=== PATIENT | male | born 1960 | race Caucasian/White ===

== ENCOUNTER → 2016-11-10 | Outpatient (CLI) | payer BC, OTHER ==
[~2016-11-10] MED LIST: DLN/100 PO
--- NOTE | 2016-11-10 16:03 | DIAGNOSTIC IMAGING REPORT ---
CHEST 2 VIEWS ROUTINE CLINICAL HISTORY: Shortness of breath. COMPARISON STUDY: Chest radiograph and chest CT January 25, 2008. FINDINGS: Moderate elevation of the right hemidiaphragm is unchanged. Linear right lower lung opacity suggests atelectasis or scarring. There is no evidence of pulmonary edema. No consolidation is present. Cardiac size is within normal limits. IMPRESSION: 1. No acute cardiopulmonary findings. 2. Stable elevation of the right hemidiaphragm. 3. Linear right lower lung opacity suggestive of atelectasis. Electronically signed by: Dany Roberts M.D. 11/10/2016 4:02 PM Dictated Date/Time: 11/10/2016 3:59 PM
== END | disposition home or self-care (01) ==
LOC: C.RAD1850 15:48
PROVIDERS: ATTEND Internal Medicine
DX: R06.02 Shortness of breath (principal); R91.8 Other nonspecific abnormal finding of lung field

== ENCOUNTER → 2016-11-16 | Outpatient (CLI) | payer OTHER ==
--- NOTE | 2016-11-16 12:45 | DIAGNOSTIC IMAGING REPORT ---
CHEST 2 VIEWS ROUTINE CLINICAL HISTORY: Exacerbation of COPD. Abnormal prior x-ray. COMPARISON STUDY: 11/10/2016 FINDINGS: There is persistent elevation right hemidiaphragm. There is stable right basilar opacities likely atelectatic. The heart is normal in size. There is no failure. There are no pleural effusions.[ IMPRESSION: 1. No acute findings 2. Stable elevation right hemidiaphragm with right basilar opacities, likely atelectatic Electronically signed by: Keith Porter M.D. 11/16/2016 12:44 PM Dictated Date/Time: 11/16/2016 12:43 PM
== END | disposition home or self-care (01) ==
LOC: C.RAD1850 12:17
PROVIDERS: ATTEND Internal Medicine
DX: J44.1 Chronic obstructive pulmonary disease with (acute) exacerbation (principal); J98.6 Disorders of diaphragm

== ENCOUNTER → 2017-01-25 | Outpatient (CLI) | payer OTHER ==
--- NOTE | 2017-01-25 11:50 | DIAGNOSTIC IMAGING REPORT ---
FLUOROSCOPIC SIGNIFICANT TEST OF THE DIAPHRAGMS CLINICAL HISTORY: COPD. Elevated right hemidiaphragm. COMPARISON STUDY: Chest x-ray dated 11/16/2016 FINDINGS: There is marked elevation of the right hemidiaphragm. There is paradoxical movement during the stiff test. This suggest diaphragmatic paralysis. The left hemidiaphragm moves normally IMPRESSION: Marked elevation of the right hemidiaphragm with paradoxical movement during the stiff test. Electronically signed by: Keith Porter M.D. 01/25/2017 11:49 AM Dictated Date/Time: 01/25/2017 11:47 AM
== END | disposition home or self-care (01) ==
LOC: C.RAD 11:12
PROVIDERS: ATTEND Internal Medicine Pulmonary Disease
DX: J44.9 Chronic obstructive pulmonary disease, unspecified (principal); R06.02 Shortness of breath

== ENCOUNTER → 2017-09-04 | Outpatient (CLI) | payer OTHER ==
[2017-09-04 17:58] LABS: BASO % 0.8 %; BASO ABS # 0.04 K/uL (0-0.2); COMPLETE YES; EOS % 1.4 %; HEMATOCRIT 48.2 % (42-52); IG% 0.2 %; LYMPH % 30.7 %; LYMPH ABS # 1.49 K/uL (1.2-3.4); MEAN CELL VOLUME 93.8 fL (80-100); MEAN CORPUSCULAR HEMOGLOBIN 32.7 pg (25-34); MEAN CORPUSCULAR HGB CONC 34.9 g/dl (32-36); MEAN PLATELET VOLUME 10.9 fL (7.4-10.4); MONO % 11.9 %; PLATELET COUNT 152 K/uL (130-400); RED BLOOD COUNT 5.14 M/uL (4.7-6.1); WHITE BLOOD COUNT 4.86 K/uL (4.8-10.8)
[2017-09-04 18:27] LABS: ALT/SGPT 25 U/L (12-78); AST/SGOT 18 U/L (15-37); BLOOD UREA NITROGEN 13 mg/dl (7-18); BUN/CREATININE RATIO 15.8 (10-20); CALCIUM 8.4 mg/dl (8.5-10.1); CARBON DIOXIDE 29 mmol/L (21-32); CHLORIDE 107 mmol/L (98-107); CHOLESTEROL 199 mg/dl (0-200); CREATININE 0.84 mg/dl (0.60-1.40); GLUCOSE 98 mg/dl (70-99); POTASSIUM 4.6 mmol/L (3.5-5.1); SODIUM 137 mmol/L (136-145)
[2017-09-04 18:35] LABS: ALB/GLOB RATIO 1.2 (0.9-2); ALKALINE PHOSPHATASE 79 U/L (45-117); CHOLESTEROL/HDL RATIO 4.5; HDL CHOLESTEROL 44 mg/dl; LDL CHOLESTEROL CALCULATED 136 mg/dl; TRIGLYCERIDES 95 mg/dl (0-150); VERY LOW DENSITY LIPOPROT CALC 19 mg/dl
== END | disposition home or self-care (01) ==
LOC: C.LABBFT 11:27
PROVIDERS: ATTEND Internal Medicine
DX: G54.0 Brachial plexus disorders (principal); Z13.220 Encounter for screening for lipoid disorders; G40.909 Epilepsy, unspecified, not intractable, without status epilepticus; Z11.59 Encounter for screening for other viral diseases

== ENCOUNTER 2017-12-10 19:19 | Emergency (ER) | payer OTHER ==
[2017-12-10 19:22] VITALS: TEMP 36.7
[2017-12-10] MEDS ORDERED: SODIUM CHLORIDE 0.9% 1000ML 1,000 ML IV STA (19:29)
--- NOTE | 2017-12-10 19:33 | EMERGENCY ROOM VISIT NOTE ---
History Report prepared by Aidan: Martha Villalta Under the Supervision of: Dr. Donavan Zendejas M.D. First contact with patient: 19:24 Chief Complaint: ABDOMINAL PAIN Stated Complaint: PAIN IN L SIDE History of Present Illness The patient is a 57 year old male who presents to the Emergency Room with complaints of worsening left lower abdominal pain that started yesterday morning. The patient rates his pain a 6/10 in severity. He states movement makes the pain worse. He notes yesterday the pain was mild in the morning but it got persistently worse throughout the day. He states "it feels like an infection is going through my whole body". The patient denies any nausea, vomiting, diarrhea, urinary symptoms, rashes, back pain, chest pain, or leg swelling. He notes he has never had a colonoscopy. He is not on any immunosuppressant's. Source of History: patient Onset: yesterday morning Position: other (left flank) Symptom Intensity: 6/10 Timing: worsening Modifying Factors (Worsening): movement Associated Symptoms: No chest pain, No nausea, No vomiting, No back pain, No diarrhea, No urinary symptoms Note: No leg swelling or rashes. Review of Systems See HPI for pertinent positives & negatives. A total of 10 systems reviewed and were otherwise negative. Past Medical & Surgical Hypertension, asthma, gallbladder disease, kidney stones, seizure disorder. Cholecystectomy. Family History FHx: gallbladder disease Hypertension Seizures Social History Smoking Status: Former Smoker Alcohol Use: none Marital Status: Current/Historical Medications Scheduled Amoxicillin & Pot Clavulanate (Augmentin 875-125 mg), 875 MG PO BID Cyanocobalamin (Vitamin B12), 3,000 MCG SL QAM Phenytoin Sodium (Dilantin), 400 MG PO HS Allergies Coded Allergies: No Known Allergies (Verified , 12/10/17) Physical Exam Vital Signs Date Time Temp Pulse Resp B/P (MAP) Pulse Ox O2 Delivery O2 Flow Rate FiO2 12/10/17 21:15 81 18 146/95 99 Room Air 12/10/17 20:23 88 20 152/88 98 12/10/17 19:22 36.7 92 17 161/106 97 Room Air Physical Exam GENERAL: Patient is uncomfortable appearing and in moderate distress. EYES: No scleral icterus, unremarkable pupils. ENT: Mucous membranes moist, no nasal congestion. NECK: No masses appreciated, no meningismus, trachea is midline. RESPIRATORY: No dyspnea. Clear to auscultation and equal bilaterally. No wheeze , no rhonchi. CARDIOVASCULAR: Regular rate and rhythm. No murmurs, rubs, gallops appreciated. ABDOMEN: Moderate LLQ tenderness to palpation. GASTROINTESTINAL: Abdomen soft, nontender, no peritonitis. Bowel sounds positive. No masses appreciated. BACK: No midline tenderness, no CVA tenderness EXTREMITIES: Normal motion all extremities, no cyanosis, no edema. NEUROLOGIC: Alert and oriented, no acute motor or sensory deficits, no focal weakness, cranial nerves grossly intact. SKIN: No rash, no jaundice, no diaphoresis. Medical Decision & Procedures ER Provider Diagnostic Interpretation: Radiology results and stated below per my review and radiologist interpretation: ABD/PELVIS IV CONTRAST ONLY CLINICAL HISTORY: 57 years-old Male presenting with LLQ abdominal pain. TECHNIQUE: Multidetector CT of the abdomen and pelvis was performed after the administration of intravenous contrast. IV contrast: 117 mL of Optiray 320. A dose lowering technique was used consistent with the principles of ALARA (as low as reasonably achievable). COMPARISON: 03/07/2010. CT DOSE (mGy.cm): The estimated cumulative dose is 926.10 mGy.cm. FINDINGS: Novelty Worker topogram: Cholecystectomy clips. Lung bases: Bandlike consolidation at the right lung base, likely atelectasis or scarring. Similar but less extensive changes at the left lung base. Normal heart size. Coronary artery calcification. No pericardial or pleural effusion. 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 No focal lesion. Patent hepatic vasculature. Biliary: No intrahepatic or extrahepatic biliary ductal dilatation. Gallbladder surgically absent. Pancreas: Mild parenchymal atrophy. Spleen: Normal. Splenule noted. Adrenal glands: Normal. Kidneys and ureters: Normal. No hydronephrosis. Bladder: Mild circumferential bladder wall thickening allowing for underdistention. Pelvic organs: Prostate enlargement likely secondary to benign prostatic hyperplasia. Bowel: Limited diverticulosis of the sigmoid colon. Wall thickening of the distal descending colon focally at a diverticulum. Mild pericolonic fat stranding at this site. No adjacent fluid collection or or extraluminal foci of gas. The appendix is normal. No bowel obstruction. Peritoneal cavity: Trace fluid in the left paracolic gutter with associated peritoneal thickening regionally. No evidence of abscess. No pneumoperitoneum. Lymph nodes: No enlarged lymph nodes in the abdomen or pelvis. Vasculature: Atherosclerosis of the normal caliber abdominal aorta. IVC patent. Abdominal wall: Fat-containing left inguinal hernia. Small fat-containing umbilical hernia. Bilateral gynecomastia. Musculoskeletal: Old fracture deformity of the left ribs noted. Degenerative changes of the sacroiliac joints. IMPRESSION: 1. Mild uncomplicated focal acute diverticulitis at the distal descending colon. No abscess or CT evidence of liam perforation. 2. Circumferential bladder wall thickening may be due to underdistention or indicate chronic bladder outlet obstruction in the setting of prostatomegaly. 3. Bibasilar atelectasis greater on the right. Electronically signed by: Jeevan Isaac M.D. 12/10/2017 8:28 PM Dictated Date/Time: 12/10/2017 8:22 PM Laboratory Results 12/10/17 19:40 Red Blood Count 5.31, Mean Corpuscular Volume 91.5, Mean Corpuscular Hemoglobin 33.1, Mean Corpuscular Hemoglobin Concent 36.2, Mean Platelet Volume 10.3, Neutrophils (%) (Auto) 71.7, Lymphocytes (%) (Auto) 15.2, Monocytes (%) (Auto) 12.3, Eosinophils (%) (Auto) 0.3, Basophils (%) (Auto) 0.2, Neutrophils # (Auto ) 8.76, Lymphocytes # (Auto) 1.86, Monocytes # (Auto) 1.51, Eosinophils # (Auto ) 0.04, Basophils # (Auto) 0.02 12/10/17 19:40 Test 12/10/17 19:40 12/10/17 19:46 White Blood Count 12.23 K/uL (4.8-10.8) Red Blood Count 5.31 M/uL (4.7-6.1) Hemoglobin 17.6 g/dL (14.0-18.0) Hematocrit 48.6 % (42-52) Mean Corpuscular Volume 91.5 fL (80-100) Mean Corpuscular Hemoglobin 33.1 pg (25-34) Mean Corpuscular Hemoglobin Concent 36.2 g/dl (32-36) Platelet Count 166 K/uL (130-400) Mean Platelet Volume 10.3 fL (7.4-10.4) Neutrophils (%) (Auto) 71.7 % Lymphocytes (%) (Auto) 15.2 % Monocytes (%) (Auto) 12.3 % Eosinophils (%) (Auto) 0.3 % Basophils (%) (Auto) 0.2 % Neutrophils # (Auto) 8.76 K/uL (1.4-6.5) Lymphocytes # (Auto) 1.86 K/uL (1.2-3.4) Monocytes # (Auto) 1.51 K/uL (0.11-0.59) Eosinophils # (Auto) 0.04 K/uL (0-0.5) Basophils # (Auto) 0.02 K/uL (0-0.2) RDW Standard Deviation 43.2 fL (36.4-46.3) RDW Coefficient of Variation 13.0 % (11.5-14.5) Immature Granulocyte % (Auto) 0.3 % Immature Granulocyte # (Auto) 0.04 K/uL (0.00-0.02) Urine Color YELLOW Urine Appearance CLEAR (CLEAR) Urine pH 7.0 (4.5-7.5) Urine Specific [place] 1.018 (1.000-1.030) Urine Protein NEG (NEG) Urine Glucose (UA) NEG (NEG) Urine Ketones NEG (NEG) Urine Occult Blood NEG (NEG) Urine Nitrite NEG (NEG) Urine Bilirubin NEG (NEG) Urine Urobilinogen NEG (NEG) Urine Leukocyte Esterase NEG (NEG) Urine WBC (Auto) 0 /hpf (0-5) Urine RBC (Auto) 0-4 /hpf (0-4) Urine Hyaline Casts (Auto) 0 /lpf (0-5) Urine Epithelial Cells (Auto) 0-5 /lpf (0-5) Urine Bacteria (Auto) NEG (NEG) Estimated GFR () 102.6 Estimated GFR (Non- 88.5 BUN/Creatinine Ratio 9.7 (10-20) Calcium Level 8.0 mg/dl (8.5-10.1) Total Bilirubin 0.5 mg/dl (0.2-1) Direct Bilirubin 0.1 mg/dl (0-0.2) Aspartate Amino Transf (AST/SGOT) 16 U/L (15-37) Alanine Aminotransferase (ALT/SGPT) 24 U/L (12-78) Alkaline Phosphatase 90 U/L (45-117) Total Protein 7.4 gm/dl (6.4-8.2) Albumin 3.7 gm/dl (3.4-5.0) Lipase 172 U/L (73-393) Bedside Hemoglobin 16.7 g/dl (14.0-18.0) Bedside Hematocrit 49 % (42-52) Bedside Sodium 139 mEq/L (135-144) Bedside Potassium 3.7 mEq/L (3.3-5.0) Bedside Chloride 101 mEq/L (101-112) Bedside Total CO2 29 mEq/l (24-31) Anion Gap 14.0 mmol/L (16-25) Bedside Blood Urea Nitrogen 9 mg/dl (7-18) Bedside Creatinine 0.9 mg/dl (0.6-1.3) Bedside Glucose (other) 102 mg/dl (70-99) Bedside Ionized Calcium (Rakesh) 1.08 mmol/l (1.12-1.32) Laboratory results as reviewed by me. Medications Administered Medications (Trade) Dose Ordered Sig/Jeancarlos Route Start Time Stop Time Status Last Admin Dose Admin Sodium Chloride 1,000 ml @ 999 mls/hr Q1H1M STAT IV 12/10/17 19:29 12/10/17 20:29 DC 12/10/17 19:42 999 MLS/HR Amoxicillin/ Clavulanate Potassium (Augmentin Tab) 875 mg ONE ONCE PO 12/10/17 20:45 12/10/17 20:46 DC 12/10/17 20:49 875 MG ED Course 1923: The patient was evaluated in room B2. A complete history and physical exam was performed. 2043: I discussed pros and cons of different antibiotic choices. He wishes to go with Augmentin. I advised he follow up with GI or his PCP. He declines any pain medications. 2109: Reevaluated the patient. Discussed results and discharge instructions: He verbalized understanding and agreement. The patient is ready for discharge. Medical Decision Differential: Diverticulitis, MSK, , UTI, Renal Colic, Bowel Obstruction, Aortic Pathology, amongst other pathologies entertained. 57 yr old pleasant male with LLQ abdominal pain. Exam with TTP over LLQ and with history of no previous issues felt that imaging indicated. WBC mildly elevated but otherwise no evidence sepsis. He does not have surgical abdomen nor diffuse peritonitis. CT confirms diverticulitis. Declines pain medications. Agrees with Augmentin. Stressed PCP/GI follow up. Reviewed symptoms requiring RTED. Stable and looks well. Medication Reconcilliation Current Medication List: was personally reviewed by me Impression Primary Impression: Diverticulitis large intestine w/o perforation or abscess w/o bleeding Scribe Attestation The scribe's documentation has been prepared under my direction and personally reviewed by me in its entirety. I confirm that the note above accurately reflects all work, treatment, procedures, and medical decision making performed by me. Departure Information Dispostion Home / Self-Care Prescriptions Amoxicillin & Pot Clavulanate (Augmentin 875-125 mg) 1 Tab Tab 875 MG PO BID for 10 Days, #20 TAB Prov: Donavan Zendejas M.D. 12/10/17 Referrals RV. Bird MD (PCP) Patient Instructions ED Diverticulitis, [facility]
[2017-12-10] MEDS ORDERED: OPTIRAY 320 IV PRN (19:45)
[2017-12-10] MEDS ORDERED: CYAN30003 SL (19:48)
[2017-12-10] MEDS ORDERED: CYAN10005 PO (19:48)
[2017-12-10] MEDS ORDERED: PHN/100 PO (19:48)
[2017-12-10 19:51] LABS: BASO % 0.2 %; BASO ABS # 0.02 K/uL (0-0.2); EOS % 0.3 %; EOS ABS # 0.04 K/uL (0-0.5); HEMATOCRIT 48.6 % (42-52); HEMOGLOBIN 17.6 g/dL (14.0-18.0); IG# 0.04 K/uL (0.00-0.02); LYMPH % 15.2 %; LYMPH ABS # 1.86 K/uL (1.2-3.4); MEAN CELL VOLUME 91.5 fL (80-100); MEAN CORPUSCULAR HEMOGLOBIN 33.1 pg (25-34); MEAN CORPUSCULAR HGB CONC 36.2 g/dl (32-36); MEAN PLATELET VOLUME 10.3 fL (7.4-10.4); MONO % 12.3 %; MONO ABS # 1.51 K/uL (0.11-0.59); NEUT % 71.7 %; NEUT ABS # 8.76 K/uL (1.4-6.5); PLATELET COUNT 166 K/uL (130-400); RED CELL DISTRIBUTION WIDTH SD 43.2 fL (36.4-46.3); WHITE BLOOD COUNT 12.23 K/uL (4.8-10.8)
[2017-12-10 20:03] LABS: ISTAT CREATININE 0.9 mg/dl (0.6-1.3); ISTAT IONIZED CALCIUM 1.08 mmol/l (1.12-1.32); ISTAT POTASSIUM 3.7 mEq/L (3.3-5.0)
[2017-12-10 20:07] LABS: ALBUMIN 3.7 gm/dl (3.4-5.0); ALT/SGPT 24 U/L (12-78); BLOOD UREA NITROGEN 9 mg/dl (7-18); CARBON DIOXIDE 30 mmol/L (21-32); CREATININE 0.95 mg/dl (0.60-1.40); GLUCOSE 98 mg/dl (70-99); LIPASE 172 U/L (73-393); POTASSIUM 3.7 mmol/L (3.5-5.1); SODIUM 138 mmol/L (136-145)
[2017-12-10 20:10] LABS: ALKALINE PHOSPHATASE 90 U/L (45-117); AST/SGOT 16 U/L (15-37); TOTAL PROTEIN 7.4 gm/dl (6.4-8.2)
--- NOTE | 2017-12-10 20:30 | DIAGNOSTIC IMAGING REPORT ---
ABD/PELVIS IV CONTRAST ONLY CLINICAL HISTORY: 57 years-old Male presenting with LLQ abdominal pain. TECHNIQUE: Multidetector CT of the abdomen and pelvis was performed after the administration of intravenous contrast. IV contrast: 117 mL of Optiray 320. A dose lowering technique was used consistent with the principles of ALARA (as low as reasonably achievable). COMPARISON: 03/07/2010. CT DOSE (mGy.cm): The estimated cumulative dose is 926.10 mGy.cm. FINDINGS: Press Assistant topogram: Cholecystectomy clips. Lung bases: Bandlike consolidation at the right lung base, likely atelectasis or scarring. Similar but less extensive changes at the left lung base. Normal heart size. Coronary artery calcification. No pericardial or pleural effusion. 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 No focal lesion. Patent hepatic vasculature. Biliary: No intrahepatic or extrahepatic biliary ductal dilatation. Gallbladder surgically absent. Pancreas: Mild parenchymal atrophy. Spleen: Normal. Splenule noted. Adrenal glands: Normal. Kidneys and ureters: Normal. No hydronephrosis. Bladder: Mild circumferential bladder wall thickening allowing for underdistention. Pelvic organs: Prostate enlargement likely secondary to benign prostatic hyperplasia. Bowel: Limited diverticulosis of the sigmoid colon. Wall thickening of the distal descending colon focally at a diverticulum. Mild pericolonic fat stranding at this site. No adjacent fluid collection or or extraluminal foci of gas. The appendix is normal. No bowel obstruction. Peritoneal cavity: Trace fluid in the left paracolic gutter with associated peritoneal thickening regionally. No evidence of abscess. No pneumoperitoneum. Lymph nodes: No enlarged lymph nodes in the abdomen or pelvis. Vasculature: Atherosclerosis of the normal caliber abdominal aorta. IVC patent. Abdominal wall: Fat-containing left inguinal hernia. Small fat-containing umbilical hernia. Bilateral gynecomastia. Musculoskeletal: Old fracture deformity of the left ribs noted. Degenerative changes of the sacroiliac joints. IMPRESSION: 1. Mild uncomplicated focal acute diverticulitis at the distal descending colon. No abscess or CT evidence of liam perforation. 2. Circumferential bladder wall thickening may be due to underdistention or indicate chronic bladder outlet obstruction in the setting of prostatomegaly. 3. Bibasilar atelectasis greater on the right. Electronically signed by: Jeevan Isaac M.D. 12/10/2017 8:28 PM Dictated Date/Time: 12/10/2017 8:22 PM
[2017-12-10] MEDS ORDERED: AMOXICILLIN/CLAVULANATE TAB 875 MG TAB PO ONE (20:45)
[2017-12-10] MEDS ORDERED: AMOX875T PO (20:49)
[2017-12-10 21:15] VITALS: BP 146/95; PULSE 81; O2SAT 99
== END 2017-12-10 21:17 | disposition home or self-care (01) ==
LOC: C.EDB 19:20
DX: K57.32 Diverticulitis of large intestine without perforation or abscess without bleeding (principal); I10 Essential (primary) hypertension; J45.909 Unspecified asthma, uncomplicated; D72.829 Elevated white blood cell count, unspecified; Z87.442 Personal history of urinary calculi; Z90.49 Acquired absence of other specified parts of digestive tract; Z87.19 Personal history of other diseases of the digestive system; Z87.891 Personal history of nicotine dependence; Z83.79 Family history of other diseases of the digestive system; Z82.49 Family history of ischemic heart disease and other diseases of the circulatory system; Z82.0 Family history of epilepsy and other diseases of the nervous system

== ENCOUNTER → 2018-01-24 | Outpatient (CLI) | payer OTHER ==
[~2018-01-24] MED LIST changes: +CYAN30003 SL; -DLN/100 PO; +PHN/100 PO
--- NOTE | 2018-01-24 15:30 | DIAGNOSTIC IMAGING REPORT ---
L SHOULDER MIN 2 VIEWS ROUTINE CLINICAL HISTORY: M75.102 LEFT SHOULDER PAIN COMPARISON: None. DISCUSSION: No fractures or dislocations are visualized. There is no evidence for peritendinous calcification. There is minor spurring at the level of the radial tuberosity. IMPRESSION: 1. No acute fractures 2. Minor greater tuberosity spurring Electronically signed by: Keith Porter M.D. 01/24/2018 3:28 PM Dictated Date/Time: 01/24/2018 3:27 PM
== END | disposition home or self-care (01) ==
LOC: C.RAD1850 15:02
PROVIDERS: ATTEND Internal Medicine
DX: M75.102 Unspecified rotator cuff tear or rupture of left shoulder, not specified as traumatic (principal)

== ENCOUNTER → 2018-01-31 | Day surgery (SDC) | payer OTHER ==
[~2018-01-31] VITALS: Ht 177.8 cm; Wt 95.5 kg
[~2018-01-31] MED LIST changes: +FENTANYL CITRATE INJ 50 MCG/1 ML 2 ML VIAL ONE; +LIDOCAINE HCL 2% 2 ML VIAL (20MG/ML) ONE; +MIDAZOLAM HCL 1 MG/ML 2ML VIAL ONE; +PROPOFOL IV EMULSION 10 MG/ML 20 ML VIAL ONE
[2018-01-31 15:19] VITALS: Ht 177.8 cm; Wt 95.5 kg
--- NOTE | 2018-01-31 15:45 | Endo History and Physical ---
History & Physical Date of Service: January 31, 2018. Chief Complaint: DIVERTICULITIS Referring Physician: DR SWIFT History of Present Illness 57 yo CM who presents for colonoscopy secondary to history of diverticulitis. Past Medical History Asthma, Seizure Disorder, Hypertension Past Surgical History Hx Cardiac Surgery: No Hx Internal Defibrillator: No Hx Pacemaker: No Hx Abdominal Surgery: Yes (LAP CHOLEY) Hx of Implantable Prosthesis: No Hx Post-Op Nausea and Vomiting: No Hx Cancer Surgery: No Hx Thoracic Surgery: No Hx Orthopedic: Yes (LEFT CTR, TRIGGER FINGER) Hx Urinary Tract Surgery: No Social History Smoking Status: Former Smoker Hx Substance Use: No Hx Alcohol Use: No (RARELY) Allergies Coded Allergies: No Known Allergies (Verified , 01/18/18) Current Medications Reported Home Medications Medications Dose Route/Sig Max Daily Dose Days Date Category Vitamin B12 (Cyanocobalamin) 3,000 Mcg Sub 3,000 Mcg SL QAM 12/10/17 Reported Dilantin (Phenytoin Sodium) 100 Mg Cap 400 Mg PO HS 12/10/17 Reported Vital Signs Weight (Kilograms): 95.45 Height (Feet): 5 Height (Inches): 10 Date Time Temp Pulse Resp B/P (MAP) Pulse Ox O2 Delivery O2 Flow Rate FiO2 01/31/18 15:12 36.7 86 18 143/94 (110) 97 Room Air Physical Exam General Appearance: WD/WN, no apparent distress Respiratory/Chest: Auscultation: breath sounds normal Cardiovascular: Heart Auscultation: RRR Abdomen: Bowel Sounds: normal Inspection & Palpation: soft, non-distended, no tenderness, guarding & rebound Assessment and Plan Assessment: 57 yo CM who presents for colonoscopy secondary to history of diverticulitis. Plan: Proceed with colonoscopy.
--- NOTE | 2018-01-31 16:27 | Discharge Instructions ---
Endoscopy Patient Instructions Date / Procedure(s) Performed January 31, 2018. Colonoscopy Allergy Information Coded Allergies: No Known Allergies (Verified , 01/18/18) Discharge Date / Findings January 31, 2018. Colon polyps Diverticulosis Internal hemorrhoids Medication Instructions OK to resume all medications today as prescribed Reported Home Medications Medications Dose Route/Sig Max Daily Dose Days Date Category Vitamin B12 (Cyanocobalamin) 3,000 Mcg Sub 3,000 Mcg SL QAM 12/10/17 Reported Dilantin (Phenytoin Sodium) 100 Mg Cap 400 Mg PO HS 12/10/17 Reported Provider Instructions Activity Restrictions - No exercising or heavy lifting for 24 hours. - Do not drink alcohol the day of the procedure. - Do not drive a car or operate machinery until the day after the procedure. - Do not make any important decisions or sign important papers in 24 hours after the procedure. Following Day: - Return to full activity which may include returning to work/school. Diet Start your diet with liquids and light foods (jello, soup, juice, toast). Then eat your usual diet if not nauseated. Treatment For Common After Affects For mild abdominal pain, bloating, or excessive gas: - Rest - Eat lightly - Lie on right side Follow-Up Information Follow-up with DR SWIFT as scheduled Anesthesia Information What You Should Know You have had a procedure that required some medicine to reduce anxiety and discomfort. This treatment is called moderate sedation. After receiving the treatment, you may be sleepy, but you will be able to breathe on your own. The effects of the treatment may last for several hours. Follow these instructions along with Activity/Diet recommendations noted above: * Do NOT do anything where dizziness or clumsiness would be dangerous. * Rest quietly at home today, then you can be up and about tomorrow. * Have a responsible person stay with you the rest of today. * You may have had an I.V. today. If so, you may take the dressing off later today. Recommendations Call your doctor if: * Trouble breathing * Continuous vomiting for more than 24 hours * Temperature above 101 degrees * Severe abdominal pain or bloating * Pain not relieved by pain medicine ordered * There is increased drainage or redness from any incision * A large amount of rectal bleeding greater than 2-3 tablespoons. (If you had a polyp/s removed or have hemorrhoids, a small amount of blood - from the rectum is to be expected.) * You have any unanswered questions or concerns. IN THE EVENT OF A SERIOUS EMERGENCY, GO TO THE NEAREST EMERGENCY ROOM Your discharge instructions were prepared by provider Matt Villanueva. Patient Instructions Signature Page Mumtaz Rodriguez Patient (or Guardian) Signature/Date: I have read and understand the instructions given to me by my caregivers. Caregiver/RN/Doctor Signature/Date: The above-named patient and/or guardian has received patient instructions on this date. + Original Patient Signature Page (only) stays with chart. Please make copy for patient.
--- NOTE | 2018-01-31 16:28 | Anesthesiology Progress Note ---
Anesthesia Post Op Note Date & Time January 31, 2018 at 16:27 Vital Signs Pain Intensity: 0 Vital Signs Past 12 Hours Date Time Temp Pulse Resp B/P (MAP) Pulse Ox O2 Delivery O2 Flow Rate FiO2 01/31/18 15:12 36.7 86 18 143/94 (110) 97 Room Air Notes Mental Status: alert / awake / arousable, participated in evaluation Pt Amnestic to Procedure: Yes Nausea / Vomiting: adequately controlled Pain: adequately controlled Airway Patency, RR, SpO2: stable & adequate BP & HR: stable & adequate Hydration State: stable & adequate Anesthetic Complications: no major complications apparent
--- NOTE | 2018-01-31 16:35 | GI REPORT ---
Patient Name: Mumtaz Rodriguez Procedure Date: 01/31/2018 3:16 PM Date of : 1960 Admit Type: Outpatient Age: 57 Gender: Male Attending MD: Matt Villanueva DO Procedure: Colonoscopy Providers: Matt Villanueva DO Referring MD: Caro Bird Indications: Follow-up of diverticulitis Medicines: Monitored Anesthesia Care Complications: No immediate complications. Estimated Blood Loss: Estimated blood loss: none. Procedure: Pre-Anesthesia Assessment: - Prior to the procedure, a History and Physical was performed, and patient medications and allergies were reviewed. The patient's tolerance of previous anesthesia was also reviewed. The risks and benefits of the procedure and the sedation options and risks were discussed with the patient. All questions were answered, and informed consent was obtained. Prior Anticoagulants: The patient has taken no previous anticoagulant or antiplatelet agents. ASA Grade Assessment: II - A patient with mild systemic disease. After reviewing the risks and benefits, the patient was deemed in satisfactory condition to undergo the procedure. After I obtained informed consent, the scope was passed under direct vision. Throughout the procedure, the patient's blood pressure, pulse, and oxygen saturations were monitored continuously. The On-site loaner was introduced through the anus and advanced to the cecum, identified by appendiceal orifice and ileocecal valve. The colonoscopy was performed without difficulty. The patient tolerated the procedure well. The quality of the bowel preparation was good. The ileocecal valve, appendiceal orifice, and rectum were photographed. Findings: The perianal and digital rectal examinations were normal. Three sessile polyps were found in the sigmoid colon and transverse colon. The polyps were 4 to 8 mm in size. These polyps were removed with a hot snare. Resection and retrieval were complete. Multiple small-mouthed diverticula were found in the sigmoid colon. Non-bleeding internal hemorrhoids were found during retroflexion. The hemorrhoids were small. Impression: - Three 4 to 8 mm polyps in the sigmoid colon and in the transverse colon, removed with a hot snare. Resected and retrieved. - Diverticulosis in the sigmoid colon. - Non-bleeding internal hemorrhoids. Recommendation: - Resume previous diet. - Continue present medications. - Repeat colonoscopy for surveillance based on pathology results. - Return to primary care physician as previously scheduled. Matt Villanueva, DO 01/31/2018 4:35:07 PM This report has been signed electronically. Note Initiated On: 01/31/2018 3:16 PM Number of Addenda: 0 I attest to the content of the Intraoperative Record and orders documented therein, exceptions below {[id number]}
[2018-01-31 16:59] VITALS: BP 148/102; PULSE 83; O2SAT 93
== END | disposition home or self-care (01) ==
LOC: C.GI 15:00
PROVIDERS: ATTEND Internal Medicine
DX: K57.32 Diverticulitis of large intestine without perforation or abscess without bleeding (principal); D12.5 Benign neoplasm of sigmoid colon; D12.3 Benign neoplasm of transverse colon; D64.9 Anemia, unspecified; G40.909 Epilepsy, unspecified, not intractable, without status epilepticus; J45.909 Unspecified asthma, uncomplicated; I10 Essential (primary) hypertension; J44.9 Chronic obstructive pulmonary disease, unspecified; E53.8 Deficiency of other specified B group vitamins; F41.8 Other specified anxiety disorders; Z87.891 Personal history of nicotine dependence; Z82.49 Family history of ischemic heart disease and other diseases of the circulatory system